=== PATIENT | male | born 1955 ===

== ENCOUNTER 2017-07-08 10:02 | Emergency (ER) | payer SELFPAY ==
[2017-07-08 10:17] VITALS: BP 131/83; PULSE 79; RESP 18; TEMP 97.7; O2SAT 97
--- NOTE | 2017-07-08 10:45 | C.PDOC ---
History Of Present Illness 61M c/o productive cough for 3 weeks. no fever. denies pmh. takes no meds. Time Seen by Provider: 07/08/17 10:40 Chief Complaint (Nursing): Flu-like Symptoms History Per: Patient History/Exam Limitations: no limitations Onset/Duration Of Symptoms: Days Current Symptoms Are (Timing): Still Present Severity: Mild Past Medical History Reviewed: Historical Data, Nursing Documentation, Vital Signs Vital Signs: Last Vital Signs Temp 97.7 F 07/08/17 10:17 Pulse 79 07/08/17 10:17 Resp 18 07/08/17 11:02 BP 131/83 07/08/17 10:17 Pulse Ox 97 07/08/17 11:05 Family History: States: Unknown Family Hx - Social History Hx Alcohol Use: Yes Hx Substance Use: No - Immunization History Hx Tetanus Toxoid Vaccination: No Hx Influenza Vaccination: No Hx Pneumococcal Vaccination: No Review Of Systems Constitutional: Negative for: Fever, Chills, Sweats ENT: Negative for: Ear Pain, Throat Pain Cardiovascular: Negative for: Chest Pain Respiratory: Positive for: Cough Gastrointestinal: Negative for: Nausea, Vomiting, Abdominal Pain, Diarrhea Physical Exam - Physical Exam Appears: Well, Non-toxic, No Acute Distress Skin: Warm, Dry Eye(s): bilateral: PERRL Ear(s): Bilateral: Normal Oral Mucosa: Moist Tongue: No Swelling Throat: Normal, No Erythema Neck: Supple Cardiovascular: Rhythm Regular Respiratory: No Decreased Breath Sounds, No Accessory Muscle Use, No Rales, No Rhonchi, No Stridor, No Wheezing Gastrointestinal/Abdominal: Soft, No Tenderness, No Distention, No Guarding, No Rebound Neurological/Psych: Oriented x3 ED Course And Treatment O2 Sat by Pulse Oximetry: 97 Pulse Ox Interpretation: Normal Disposition - Disposition Referrals: [facility] [Outside] Disposition: HOME/ ROUTINE Disposition Time: 10:45 Condition: GOOD Additional Instructions: Please follow up with your doctor. Return to the ER for any worsening symptoms or for any other concerns. Prescriptions: Doxycycline Hyclate [Doryx] 100 mg PO BID #14 cap Promethazine [Phenergan Syrup] 6.25 mg PO Q12H PRN #100 ml PRN Reason: Cough Forms: Gen Discharge Inst Sudanese, [facility] (Sudanese) Print Language: JORDANIAN - Clinical Impression Clinical Impression: Cough - Scribe Statement Sky fairchild All medical record entries made by the Scribe were at my direction and personally dictated by me. I have reviewed the chart and agree that the record accurately reflects my personal performance of the history, physical exam, medical decision making, and the department course for this patient. I have also personally directed, reviewed, and agree with the discharge instructions and disposition.
== END 2017-07-08 11:02 | disposition home or self-care (01) ==
LOC: C.ER 10:02
DX: R05 Cough (principal)